=== PATIENT | female | born 1980 | race African-American/Black ===

== ENCOUNTER 2019-06-11 11:39 | Emergency (ER) | payer OTHER, SELFPAY ==
[2019-06-11] MEDS ORDERED: Ketorolac Tromethamine 60 MG/2 ML VIAL ONE (12:31)
--- NOTE | 2019-06-11 12:51 | RAD ---
XR Shoulder Rt 3 View STANDARD: 06/11/2019 12:20 PM CLINICAL INDICATION: Injury COMPARISON: None. FINDINGS: There is subtle sclerosis and a faint linear lucency centered about the greater tuberosity. Subtle he terotopic density is seen. No significant displacement. Right AC joint is maintained. IMPRESSION: Subtle sclerosis and thin linear, faint lucency involving greater tuberosity which may re late to a nondisplaced recent fracture in light of patient's history of injury and pain. Subtle adjacent density of the soft tissues of the right shoulder is also seen. Correlate clinically for focal point tenderness of this region.
[2019-06-11] MEDS ORDERED: HYDROcodone/Acetaminophen 10/325 mg Tablet ONE (13:24)
== END 2019-06-11 14:05 | disposition home or self-care (01) ==
LOC: ERS 11:39
DX: S42.201A Unspecified fracture of upper end of right humerus, initial encounter for closed fracture (principal); W10.9XXA Fall (on) (from) unspecified stairs and steps, initial encounter
CPT/HCPCS: 96372; J1885